=== PATIENT | male | born 1980 | race Caucasian/White ===

== ENCOUNTER 2019-09-04 09:58 | Outpatient (CLI) | payer OTHER ==
[~2019-09-04] VITALS: Ht 172.7 cm; Wt 107.3 kg
[2019-09-04] MEDS ORDERED: HCTZ12.5TAB (10:08)
[2019-09-04] MEDS ORDERED: CARDIZEM CD 18180 MG PO (10:08)
[2019-09-04 10:12] VITALS: BP 147/103; PULSE 91; TEMP 98
[2019-09-04] MEDS ORDERED: CEPHALEXIN500 M1 PO (11:46)
[2019-09-04 11:54] VITALS: BP 140/86; PULSE 101; TEMP 98.1
== END 2019-09-04 12:01 | disposition home or self-care (01) ==
LOC: COL.CAR 09:58
DX: R94.39 Abnormal result of other cardiovascular function study (principal); I10 Essential (primary) hypertension; Z87.891 Personal history of nicotine dependence; Z83.3 Family history of diabetes mellitus

== ENCOUNTER → 2019-10-19 | Outpatient (CLI) | payer OTHER ==
[~2019-10-19] MED LIST: CARDIZEM CD 18180 MG PO; CEPHALEXIN500 M1 PO; HCTZ12.5TAB
== END ==
LOC: COL.PUL 10:00
DX: R06.02 Shortness of breath (principal)
CPT/HCPCS: J7674